=== PATIENT | male | born 1950 | race Caucasian/White ===

== ENCOUNTER 2017-03-15 16:33 | Emergency (ER) | payer OTHER ==
[~2017-03-15] VITALS: Ht 177.8 cm; Wt 94.0 kg
[~2017-03-15 16:33] MED LIST: SIMV5TAB3 OR; TRAZ50TA78 PO
[2017-03-15 16:41] VITALS: BP 145/76; PULSE 76; RESP 16; TEMP 97.5; O2SAT 97
[2017-03-15] MEDS ORDERED: LORazepam 0.5 MG TAB PO ONE (16:45)
[2017-03-15] MEDS ORDERED: SODIUM CHLORIDE 0.9% FLUSH 10 ML FLUSH IVF PRN (16:45)
--- NOTE | 2017-03-15 16:46 | PD ---
HPI Chief Complaint: Seizure Time Seen by Provider: 16:40 Travel History International Travel<30 days: No Contact w/Intl Traveler<30days: No Traveled to known affect area: No History of Present Illness HPI This patient was seated at home and his was cutting his hair. He had a syncopal episode. He passed out and fell backwards and she caught him. There was no injury because she caught him. She reports that both his arms were appraised and shaking in an abnormal fashion. He urinated on himself. When the event resolved he was very confused. He has no history of seizure disorder. It sounds like he had a new onset seizure. However I wasn't there and can't be 100% certain. He did not have any chest pain or presyncopal symptoms prior to this. Seems confused and postictal at this time. No tongue injury. Severity was moderate. Duration 1 minute. No alleviating factors. No obvious exacerbating factors. Denies alcohol or drug abuse. PFSH Past Medical History High Cholesterol: Yes Diminished Hearing: No Genitourinary: Yes (prostate enlargement - ) Immunizations Current: Yes Social History Alcohol Use: Yes (1-2 times a week) Tobacco Use: Yes (1 ppd) Substance Use: No Allergies-Medications (Allergen,Severity, Reaction): Coded Allergies: No Known Allergies (Verified Adverse Reaction, Unknown, 03/15/17) Reported Meds & Prescriptions Reported Meds & Active Scripts Active No Active Prescriptions or Reported Medications Review of Systems General / Constitutional: No: Fever Eyes: No: Visual changes HENT: No: Headaches Cardiovascular: Positive: Syncope, No: Chest Pain or Discomfort Respiratory: No: Shortness of Breath Gastrointestinal: No: Abdominal Pain Genitourinary: No: Dysuria Musculoskeletal: No: Pain Skin: No Rash Neurologic: Positive: Syncope, Seizures, No: Weakness Psychiatric: No: Depression Endocrine: No: Polydipsia Hematologic/Lymphatic: No: Easy Bruising Physical Exam Narrative GENERAL: Well-nourished, well-developed patient in no apparent distress. SKIN: Focused skin assessment reveals no rash and nodules. Skin is Warm and dry. HEAD: Atraumatic. Normocephalic. EYES: Pupils equal and round. No scleral icterus. No injection or drainage. ENT: No nasal bleeding or discharge. Mucous membranes pink and moist. NECK: Trachea midline. No JVD. CARDIOVASCULAR: Regular rate and rhythm. No murmur appreciated. RESPIRATORY: No accessory muscle use. Clear to auscultation. Breath sounds equal bilaterally. GASTROINTESTINAL: Abdomen soft, non-tender, nondistended. Hepatic and splenic margins not palpable. MUSCULOSKELETAL: No obvious deformities. No clubbing. No cyanosis. No edema. NEUROLOGICAL: Awake but drowsy appearing. No obvious cranial nerve deficits. Motor grossly within normal limits. Normal speech. PSYCHIATRIC: Appropriate mood and affect; insight and judgment seems reduced Data Data Last Documented VS Vital Signs Date Time Temp Pulse Resp B/P (MAP) Pulse Ox O2 Delivery O2 Flow Rate FiO2 03/15/17 16:47 Room Air 03/15/17 16:47 16 97 03/15/17 16:41 97.5 76 145/76 (99) Orders Orders Complete Blood Count With Diff (03/15/17 16:40) Basic Metabolic Panel (Bmp) (03/15/17 16:40) Alcohol (Ethanol) (03/15/17 16:40) Drug Screen, Random Urine (03/15/17 16:40) Electrocardiogram (03/15/17 ) Ct Brain W/O Iv Contrast(Rout) (03/15/17 ) Blood Glucose (03/15/17 16:40) Ecg Monitoring (03/15/17 16:40) Iv Access Insert/Monitor (03/15/17 16:40) Oximetry (03/15/17 16:40) Sodium Chloride 0.9% Flush (Ns Flush) (03/15/17 16:45) Lorazepam (Ativan) (03/15/17 16:45) Labs Laboratory Tests Test 03/15/17 16:45 White Blood Count 6.5 TH/MM3 Red Blood Count 4.71 MIL/MM3 Hemoglobin 13.9 GM/DL Hematocrit 41.9 % Mean Corpuscular Volume 89.0 FL Mean Corpuscular Hemoglobin 29.6 PG Mean Corpuscular Hemoglobin Concent 33.2 % Red Cell Distribution Width 12.2 % Platelet Count 305 TH/MM3 Mean Platelet Volume 8.1 FL Neutrophils (%) (Auto) 58.2 % Lymphocytes (%) (Auto) 31.3 % Monocytes (%) (Auto) 8.1 % Eosinophils (%) (Auto) 1.7 % Basophils (%) (Auto) 0.7 % Neutrophils # (Auto) 3.9 TH/MM3 Lymphocytes # (Auto) 2.0 TH/MM3 Monocytes # (Auto) 0.5 TH/MM3 Eosinophils # (Auto) 0.1 TH/MM3 Basophils # (Auto) 0.0 TH/MM3 CBC Comment DIFF FINAL Differential Comment Blood Urea Nitrogen 18 MG/DL Creatinine 1.30 MG/DL Random Glucose 115 MG/DL Calcium Level 8.4 MG/DL Sodium Level 139 MEQ/L Potassium Level 3.7 MEQ/L Chloride Level 104 MEQ/L Carbon Dioxide Level 26.0 MEQ/L Anion Gap 9 MEQ/L Estimat Glomerular Filtration Rate 55 ML/MIN Ethyl Alcohol Level LESS THAN 3 MG/DL MDM Medical Decision Making Medical Screen Exam Complete: Yes Emergency Medical Condition: Yes Medical Record Reviewed: Yes Differential Diagnosis New-onset seizure, cardiac arrhythmia, vasovagal episode Narrative Course I have reviewed the patient's electronic medical record. IV placed CBC is normal Metabolic profile is normal Alcohol is negative Tox screen was ordered but never collected I reviewed his EKG shows sinus rhythm without ectopy Extended cardiac monitoring shows sinus rhythm without ectopy Patient has no focal neurologic findings but seems a bit sedated and confused I gave him a dose of 0.5 mg oral Ativan Brain CT is negative On recheck the patient is awake and alert and no longer postictal. He feels fine. I observed him for 2-1/4 hours with no recurrent events As best I can tell he had a new onset seizure but it's by no means definitive. I don't recommend starting seizure medicine for a one-time event. He should not drive or swim or operate machinery etc. until his doctor's clear him [facility] Return if worse Diagnosis Primary Impression: New onset seizure Additional Instructions: The patient was advised to follow up with their physician and return if they worsen. No driving or swimming or operating heavy machinery Med/Other Pt SpecificInfo: Other Scripts No Active Prescriptions or Reported Meds Disposition: DISCHARGE HOME Condition: Stable Garrett Escobar MD Mar 15, 2017 16:46
[2017-03-15 16:47] VITALS: RESP 16; O2SAT 97
[2017-03-15 17:02] LABS: AUTOMATED NEUTROPHIL # 3.9 TH/MM3 (1.8-7.7); BASOPHIL % 0.7 % (0.0-2.0); EOSINOPHIL # 0.1 TH/MM3 (0-0.4); EOSINOPHIL % 1.7 % (0.0-4.0); HEMATOCRIT 41.9 % (39.0-51.0); HEMOGLOBIN 13.9 GM/DL (13.0-17.0); LYMPH % 31.3 % (9.0-44.0); MEAN CORPUSCULAR HEMOGLOBIN 29.6 PG (27.0-34.0); MEAN CORPUSCULAR HGB CONC 33.2 % (32.0-36.0); MEAN PLATELET VOLUME 8.1 FL (7.0-11.0); MONO % 8.1 % (0.0-8.0); MONOCYTE # 0.5 TH/MM3 (0-0.9); NEUT % 58.2 % (16.0-70.0); PLATELET COUNT 305 TH/MM3 (150-450); RED BLOOD COUNT 4.71 MIL/MM3 (4.50-5.90); RED CELL DISTRIBUTION WIDTH 12.2 % (11.6-17.2); WHITE BLOOD COUNT 6.5 TH/MM3 (4.0-11.0)
[2017-03-15 17:14] LABS: CHLORIDE 104 MEQ/L (98-107); SODIUM (NA) 139 MEQ/L (136-145)
[2017-03-15 17:17] LABS: BLOOD UREA NITROGEN 18 MG/DL (7-18); CALCIUM 8.4 MG/DL (8.5-10.1); GLUCOSE,RANDOM 115 MG/DL (74-106)
[2017-03-15 17:20] LABS: GLOMERULAR FILTRATION RATE 55 ML/MIN (>89)
--- NOTE | 2017-03-15 17:29 | RADRPT ---
EXAM DATE/TIME: 03/15/2017 16:58 [facility] COMPARISON: No previous studies available for comparison. INDICATIONS : Syncope. RADIATION DOSE: 58.58 CTDIvol (mGy) MEDICAL HISTORY : Hypercholesterolemia. Anticoagulant therapy. SURGICAL HISTORY : None. ENCOUNTER: Initial ACUITY: 1 day PAIN SCALE: 0/10 LOCATION: cranial TECHNIQUE: Multiple contiguous axial images were obtained of the head. Using automated exposure control and adjustment of the mA and/or kV according to patient size, radiation dose was kept as low as reasonably achievable to obtain optimal diagnostic quality images. DICOM format image data is av ailable electronically for review and comparison. FINDINGS: There is no evidence for intracranial hemorrhage, mass effect, mass lesions, edema, or extra-axial fl uid collections. The visualized bony structures appear intact. The ventricles are normal size for t he patient's age. There are no signs of acute infarction for technique. There is slight opacificatio n of multiple sinuses. CONCLUSION: Unremarkable study except for slight chronic sinusitis. Elie Perla MD on March 15, 2017 at 17:24 Board Certified Radiologist. This report was verified electronically.
[2017-03-15 18:55] VITALS: BP 135/80
--- NOTE | 2017-03-16 17:59 | EKG ---
Date Performed: 03/15/2017 Time Performed: 16:43:33 PTAGE: 67 years EKG: Sinus rhythm MARKED LEFT AXIS DEVIATION ABNORMAL ECG PREVIOUS TRACING : 07/31/2014 10.28 Compared to prior tracing no significant change DOCTOR: Sy Duncan Interpretating Date/Time 03/16/2017 17:58:42
== END 2017-03-15 19:00 | disposition home or self-care (01) ==
LOC: PHED 16:33
DX: R56.9 Unspecified convulsions (principal); R94.31 Abnormal electrocardiogram [ECG] [EKG]; E78.00 Pure hypercholesterolemia, unspecified; F17.200 Nicotine dependence, unspecified, uncomplicated; Z87.438 Personal history of other diseases of male genital organs
CPT/HCPCS: 70450; 80048; 80307; 85025; 93005; 99285